=== PATIENT | male | born 1995 | race Caucasian/White ===

== ENCOUNTER 2019-05-16 10:21 | Emergency (ER) | payer SELFPAY ==
[~2019-05-16] VITALS: Ht 180.3 cm; Wt 65.2 kg
[~2019-05-16 10:21] MED LIST: BEN25 PO; IBUP-1542 PO
[2019-05-16 10:27] VITALS: BP 119/64; PULSE 67; RESP 18; Ht 180.3 cm; Wt 65.2 kg
[2019-05-16] MEDS ORDERED: CEFTRIAXONE 250 MG INJ IM ONE (11:00)
[2019-05-16] MEDS ORDERED: LIDOCAINE 1% (MDV) 20 ML INJ SC ONE (11:00)
[2019-05-16] MEDS ORDERED: AZITHROMYCIN 500 MG TAB PO ONE (11:00)
== END 2019-05-16 11:39 | disposition home or self-care (01) ==
LOC: FTE 10:21
DX: R39.89 Other symptoms and signs involving the genitourinary system (principal); R30.0 Dysuria
CPT/HCPCS: 81001; 87591; 96372; 99284; J0696; 81003